=== PATIENT | female | born 1965 | race Hispanic/Latino ===

== ENCOUNTER 2023-05-12 02:39 | Emergency (ER) | payer BC ==
[2023-05-12] MEDS ORDERED: HYDROcodone/Acetaminophen 7.5/325 mg Tablet PO SCH (04:00)
== END 2023-05-12 03:30 | disposition home or self-care (01) ==
LOC: CSHERS 02:39
DX: M17.10 Unilateral primary osteoarthritis, unspecified knee (principal); F17.210 Nicotine dependence, cigarettes, uncomplicated
CPT/HCPCS: 99283

== ENCOUNTER 2023-09-18 08:58 | Inpatient (IN) | payer BC, SELFPAY ==
[2023-09-18] MEDS ORDERED: Labetalol HCl 100 MG/20 ML VIAL ONE (09:35)
[2023-09-18 09:57] LABS: ALT (SGPT) 30 U/L (8-55); AST (SGOT) 19 U/L (5-34); Alkaline Phosphatase 135 U/L (40-110); Anion Gap 13 mmol/L (10-20); BUN (Urea Nitrogen) 22 mg/dL (9.8-20.1); Bilirubin, Total 0.4 mg/dL (0.2-1.2); Calc. Creatinine Clearance 0 mL/min (70-130); Calcium 9.3 mg/dL (7.8-10.44); Carbon Dioxide 23 mmol/L (22-29); Chloride 108 mmol/L (98-107); Estimated GFR 89; Globulin 3.2 g/dL (2.4-3.5); Glucose 110 mg/dL (70-105); Potassium 4.2 mmol/L (3.5-5.1); Protein, Total 7.2 g/dL (6.0-8.3); Sodium 140 mmol/L (136-145); Troponin I Less than 0.010 ng/mL (< 0.028)
[2023-09-18 09:58] LABS: #Basophils 0.06 10x3/uL (0.0-0.2); #Monocytes 0.71 10x3/uL (0.0-1.1); #Neutrophils 6.62 10x3/uL (1.5-8.4); %Basophils 0.6 % (0.0-2.0); %Eosinophils 2.8 % (0.0-6.0); %Monocytes 6.7 % (0.0-10.0); %Neutrophils 62.5 % (40.0-75.0); Hematocrit 45.7 % (34.9-44.5); Hemoglobin 15.6 g/dL (12.0-15.5); Mean Corpuscular HGB CONC 34.1 g/dL (32.0-36.0); Mean Corpuscular Hemoglobin 30.1 pg (27.0-33.0); Mean Corpuscular Volume 88.1 fL (81.6-98.3); Mean Platelet Volume 10.2 fL (7.4-10.4); Platelet Count 265 10x3/uL (150-450); RBC Distribution Width 12.8 % (11.5-14.5); Red Blood Cell (RBC) Count 5.19 10x6/uL (3.90-5.03); White Blood Cell (WBC) Count 10.6 10x3/uL (3.5-10.5)
[2023-09-18] MEDS ORDERED: Ondansetron PF 4 MG/2 ML Vial IVP PRN (12:21)
[2023-09-18 13:11] LABS: Troponin I Less than 0.010 ng/mL (< 0.028)
[2023-09-18 13:20] VITALS: BMI 53.0
[2023-09-18] MEDS: Lisinopril 20 MG TAB PO SCH ×2 (14:08→21:21)
[2023-09-18] MEDS: Acetaminophen 325 MG TAB PO PRN (14:21)
[2023-09-18] MEDS: hydrALAZINE 20 MG/ML VIAL SLOW IVP PRN (14:26)
[2023-09-18 15:50] LABS: Troponin I Less than 0.010 ng/mL (< 0.028)
[2023-09-18] MEDS: niCARdipine 25 MG in Sodium Chloride 0.9% 250 ML 250 ML IVPB SCH (16:56)
[2023-09-18] MEDS ORDERED: NIFEdipine XL 60 MG ER.TAB PO SCH (21:00)
[2023-09-18] MEDS ORDERED: Lisinopril 20 MG TAB PO SCH (21:00)
[2023-09-18] MEDS ORDERED: NIFEdipine XL 30 MG ER.TAB PO SCH (21:00)
[2023-09-18] MEDS: Metoprolol Tartrate 50 MG TAB PO SCH (21:22)
[2023-09-18] MEDS: Atorvastatin Calcium 40 MG TAB PO SCH (21:22)
[2023-09-18] MEDS: Famotidine 20 MG TAB PO SCH (21:22)
[2023-09-19 05:12] LABS: #Basophils 0.05 10x3/uL (0.0-0.2); #Eosinphils 0.31 10x3/uL (0.0-0.5); #Monocytes 0.81 10x3/uL (0.0-1.1); #Neutrophils 6.58 10x3/uL (1.5-8.4); %Basophils 0.5 % (0.0-2.0); %Monocytes 7.8 % (0.0-10.0); %Neutrophils 63.4 % (40.0-75.0); Hematocrit 45.7 % (34.9-44.5); Hemoglobin 15.6 g/dL (12.0-15.5); Mean Corpuscular HGB CONC 34.1 g/dL (32.0-36.0); Mean Corpuscular Hemoglobin 29.5 pg (27.0-33.0); Mean Corpuscular Volume 86.4 fL (81.6-98.3); Mean Platelet Volume 9.8 fL (7.4-10.4); Platelet Count 276 10x3/uL (150-450); Red Blood Cell (RBC) Count 5.29 10x6/uL (3.90-5.03); White Blood Cell (WBC) Count 10.4 10x3/uL (3.5-10.5)
[2023-09-19 05:29] LABS: Anion Gap 14 mmol/L (10-20); BUN (Urea Nitrogen) 17 mg/dL (9.8-20.1); Calc. Creatinine Clearance 136 mL/min (70-130); Carbon Dioxide 20 mmol/L (22-29); Cardiac Risk 6.2 (Less than 4.5); Chloride 108 mmol/L (98-107); Cholesterol 181 mg/dl (< 200 Desired); Estimated GFR 95; Glucose 107 mg/dL (70-105); HDL Cholesterol 29 mg/dL (>60 Neg Risk); LDL Cholesterol, Calculated 112 mg/dL; Potassium 4.2 mmol/L (3.5-5.1); Sodium 138 mmol/L (136-145); Triglycerides 199 mg/dL (Less than 150)
[2023-09-19] MEDS: Enoxaparin 40 MG (0.4 mL) SYRINGE SC SCH (09:29)
[2023-09-19] MEDS: Amlodipine 10 MG TAB PO SCH (11:12)
[2023-09-19 12:33] VITALS: TEMP 98.3
[2023-09-19 13:43] VITALS: BP 142/104
[2023-09-19 14:11] LABS: Hemoglobin A1c 5.5 % (4.0-6.0)
== END 2023-09-19 13:40 | disposition home or self-care (01) | DRG 305 ==
LOC: CSHERS 08:58 → CSHTELE 12:25 → OBSVTOIN 16:19
PROVIDERS: ADMIT Internal Medicine; ATTEND Internal Medicine
DX: I16.0 Hypertensive urgency (principal); Z68.43 Body mass index [BMI] 50.0-59.9, adult; I25.10 Atherosclerotic heart disease of native coronary artery without angina pectoris; E66.9 Obesity, unspecified; Z95.1 Presence of aortocoronary bypass graft; Z98.891 History of uterine scar from previous surgery; Z90.49 Acquired absence of other specified parts of digestive tract; Z98.890 Other specified postprocedural states; Z79.899 Other long term (current) drug therapy; Z88.8 Allergy status to other drugs, medicaments and biological substances; Z71.3 Dietary counseling and surveillance; Z91.148 Patient's other noncompliance with medication regimen for other reason
CPT/HCPCS: 36415; 71045; 80048; 80053; 80061; 83036; 83880; 84484; 85025; 93005; 93010; 96374; 96375; 96376; G0378; J0360; J1650; J7050

== ENCOUNTER 2024-10-14 20:05 | Emergency (ER) | payer SELFPAY | END 2024-10-14 22:02 | disposition home or self-care (01) | LOC: CSHERS 20:05 | DX: J06.9 Acute upper respiratory infection, unspecified (principal); B97.89 Other viral agents as the cause of diseases classified elsewhere; I10 Essential (primary) hypertension; F17.200 Nicotine dependence, unspecified, uncomplicated | CPT/HCPCS: 87081; 87428; 87430; 99283 ==